=== PATIENT | male | born 1955 | race Caucasian/White ===

== ENCOUNTER → 2017-07-19 | Outpatient (CLI) | payer OTHER ==
[~2017-07-19] MED LIST: ALBU90AE INH; ALEN70TA5 PO; ASCO500T8 PO; ASPI-496 PO; BUDE10.2 INH; CALC-126 PO; CHOL10003 PO; LEVE500T8 PO; LORA10CA PO; MAGN400T7 PO; METH-356 PO; METO25TA91 PO; MULT-658 PO; OMEG-170 PO; POTA20TA89 PO; PREG75CA PO; SIMV40TA3 PO; SODI100P2 DT; SPIR25TA3 PO; THIA100T10 PO; TIOT18CA INH; UBID1CAP43 PO; VITA200C7 PO
== END | disposition home or self-care (01) ==
LOC: STAR 10:02
PROVIDERS: ATTEND Internal Medicine
DX: Z01.818 Encounter for other preprocedural examination (principal); K83.8 Other specified diseases of biliary tract; R10.11 Right upper quadrant pain
CPT/HCPCS: 93005

== ENCOUNTER 2017-07-24 05:55 | Day surgery (SDC) | payer OTHER ==
[~2017-07-24] VITALS: Ht 175.3 cm; Wt 69.6 kg
[2017-07-24] MEDS ORDERED: ALBUTEROL/IPRATROPIUM 2.5MG/0.5MG, 3 ML ONE (06:48)
[2017-07-24 06:57] LABS: AMPHETAMINE SCREEN, URINE Negative (Negative); BARBITURATE SCREEN, URINE Negative (Negative); BENZODIAZEPINE SCREEN, URINE Negative (Negative); CANNABINOID SCREEN, URINE Negative (Negative); COCAINE SCREEN, URINE Negative (Negative); METHADONE SCREEN, URINE Positive (Negative); OPIATE SCREEN, URINE Negative (Negative)
[2017-07-24] MEDS ORDERED: GLYCOPYRROLATE 0.2MG/1ML, 5ML ONE (07:07)
[2017-07-24] MEDS ORDERED: CEFAZOLIN 1,000 MG ONE (07:07)
[2017-07-24] MEDS ORDERED: PROPOFOL 10 MG/ML, 20ML ONE (07:07)
[2017-07-24] MEDS ORDERED: ONDANSETRON 2MG/ML, 2ML ONE (07:07)
[2017-07-24] MEDS ORDERED: SUCCINYLCHOLINE 20 MG/ML, 10ML ONE (07:07)
[2017-07-24] MEDS ORDERED: NEOSTIGMINE 1 MG/ML, 10ML ONE (07:07)
[2017-07-24] MEDS ORDERED: DEXAMETHASONE 4 MG/ML, 1ML ONE (07:07)
[2017-07-24] MEDS ORDERED: LACTATED RINGERS 1,000 ML IV SCH (07:15)
[2017-07-24] MEDS ORDERED: VITA80004 PO (07:21)
[2017-07-24 07:29] LABS: ALANINE AMINOTRANSFERASE 26 U/L (12-78); ANION GAP 7 mmol/L (5-15); CHLORIDE 108 mmol/L (98-107); CREATININE 1.04 mg/dL (0.7-1.3)
[2017-07-24 07:30] LABS: ALKALINE PHOSPHATASE 62 U/L (45-117); BILIRUBIN,TOTAL 0.6 mg/dL (0.2-1.0); TOTAL PROTEIN 7.1 g/dL (6.4-8.2)
[2017-07-24] MEDS ORDERED: HYDROmorphone 1 MG/ML, 1ML IV PRN (08:30)
[2017-07-24] MEDS ORDERED: OXYcodone 5 MG/5 ML ORAL.SOL UDC PO PRN (08:30)
[2017-07-24] MEDS ORDERED: morphine SULFATE 10 MG/ML, 1ML IV PRN (08:30)
[2017-07-24] MEDS ORDERED: FENTANYL PF 100 MCG/2ML IV PRN (08:30)
[2017-07-24] MEDS ORDERED: MEPERIDINE/PF 25MG/0.5ML IVPush PRN (08:30)
[2017-07-24] MEDS ORDERED: HYDROcodone/APAP 7.5-325MG/15ML UDC PO PRN (08:30)
[2017-07-24] MEDS ORDERED: KETOROLAC 30 MG/1 ML IV PRN ×2 (08:30)
[2017-07-24] MEDS ORDERED: ACETAMINOPHEN 325 MG TABLET PO PRN (08:30)
== END 2017-07-24 09:30 | disposition home or self-care (01) ==
LOC: OUT 05:55
PROVIDERS: ATTEND Internal Medicine
DX: K31.7 Polyp of stomach and duodenum (principal); Z98.890 Other specified postprocedural states; Z87.891 Personal history of nicotine dependence
CPT/HCPCS: 36415; 43259; 80053; 80307; 94640; J0330; J0690; J1100; J2405; J2704; J2710; J7120; J3490